=== PATIENT | female | born 1965 | race African-American/Black ===

== ENCOUNTER 2017-11-19 22:20 | Inpatient (IN) | payer OTHER ==
[~2017-11-19] VITALS: Ht 177.8 cm; Wt 73.0 kg
[~2017-11-19 22:20] MED LIST: IRON PO; PEPCID PO; PRI20 PO; [UNRECOGNIZED DRUG - OTHER] PO
[2017-11-20 00:26] LABS: CARBON DIOXIDE 23.9 mmol/L (21-32); CHLORIDE SERUM 109 mmol/L (98-107); GFR1 > 60 mL/min; GLUCOSE SERUM 85 mg/dL (74-106); POTASSIUM SERUM 3.8 mmol/L (3.5-5.1); SODIUM SERUM 142 mmol/L (136-145)
[2017-11-20 00:29] LABS: PLATELET COUNT 209 x10^3mcL (130-400)
[2017-11-20 00:30] LABS: ALBUMIN 3.4 g/dL (3.4-5.0); ALKALINE PHOSPHATASE 89 U/L (46-116); ALT/SGPT 37 U/L (14-59); AST/SGOT 31 U/L (15-37); BILIRUBIN TOTAL 0.2 mg/dL (0.20-1.00); LIPASE 145 IU/L (73-393); TOTAL PROTEIN, SERUM 7.1 g/dL (6.4-8.2)
[2017-11-20 00:35] LABS: AMYLASE 200 U/L (25-115)
[2017-11-20 00:44] LABS: RED CELL DISTRIBUTION WIDTH 17.3 % (11.5-14.5)
[2017-11-20 00:45] LABS: BAND NEUTROPHIL 5 % (0-10); MONOCYTE 3 % (0-7); SEGMENTED NEUTROPHILS 50 % (37-75)
[2017-11-20 00:46] LABS: PLATELET MORPHOLOGY PLATELETS NORMAL; rbc morphology (normal/abnorm) NORMAL (NORMAL)
[2017-11-20 01:38] LABS: AMPHETAMINE QUAL UR NONE DETECTED (NEG <=1000)
[2017-11-20 02:16] LABS: microscopic required? NO
[2017-11-20 02:28] LABS: UA SPECIFIC GRAVITY <=1.005 (1.005-1.035); urine erythrocyte NEGATIVE (NEGATIVE)
[2017-11-20 02:47] VITALS: BP 121/70
[2017-11-20 02:48] LABS: MAGNESIUM 2.1 mg/dL (1.8-2.4); PHOSPHOROUS 4.1 mg/dL (2.5-4.9)
[2017-11-20 02:52] LABS: FREE T4 0.72 ng/dL (0.76-1.46); FREE THYROXINE INDEX 1.8 ug/dL (1.4-4.5); T4(THYROXINE) 5.2 ug/dL (4.7-13.3)
[2017-11-20 02:53] LABS: T3 TOTAL 1.03 ng/mL
[2017-11-20 03:23] VITALS: BP 121/70
[2017-11-20 03:28] VITALS: Ht 177.8 cm; Wt 73.0 kg
[2017-11-20 03:52] LABS: CHOLESTEROL/HDL RATIO 1.5
[2017-11-20 04:03] LABS: TOTAL IRON BINDING CAPACITY 412 ug/dL (250-450)
[2017-11-20 04:12] LABS: IRON 24 ug/dL (50-170)
[2017-11-20 04:31] LABS: RED BLOOD CELLS 3.15 M/mm3 (4.10-5.10)
== END 2017-11-20 05:57 | disposition left against medical advice (07) | DRG 282 ==
LOC: ED 22:20 → DU 11-20 01:19
PROVIDERS: Emergency Medicine; Family Medicine
DX: K85.90 Acute pancreatitis without necrosis or infection, unspecified (principal); D64.9 Anemia, unspecified; Z53.21 Procedure and treatment not carried out due to patient leaving prior to being seen by health care provider; K86.1 Other chronic pancreatitis; Z90.49 Acquired absence of other specified parts of digestive tract; Z88.6 Allergy status to analgesic agent; Z98.84 Bariatric surgery status; Z79.899 Other long term (current) drug therapy
CPT/HCPCS: 83880; 84439; J1200; J2270; J2405; J7030; Q0092

== ENCOUNTER 2017-12-16 14:42 | Emergency (ER) | payer OTHER ==
[~2017-12-16] VITALS: Ht 177.8 cm; Wt 70.3 kg
[2017-12-16 14:46] VITALS: Ht 177.8 cm; Wt 70.3 kg
[2017-12-16 15:38] LABS: BASOPHIL % 0.2 % (0-2); PLATELET COUNT 215 x10^3mcL (130-400)
[2017-12-16 15:43] LABS: RED CELL DISTRIBUTION WIDTH 17.6 % (11.5-14.5)
[2017-12-16 15:55] LABS: microscopic required? NO
[2017-12-16 16:02] LABS: CALCIUM 8.5 mg/dL (8.5-10.1); CARBON DIOXIDE 27.6 mmol/L (21-32); CHLORIDE SERUM 107 mmol/L (98-107); GFR1 > 60 mL/min; GLUCOSE SERUM 81 mg/dL (74-106); POTASSIUM SERUM 4.9 mmol/L (3.5-5.1); SODIUM SERUM 139 mmol/L (136-145)
[2017-12-16 16:04] LABS: ALBUMIN 3.6 g/dL (3.4-5.0); ALKALINE PHOSPHATASE 83 U/L (46-116); ALT/SGPT 36 U/L (14-59); AMYLASE 188 U/L (25-115); AST/SGOT 41 U/L (15-37); BILIRUBIN TOTAL 0.2 mg/dL (0.20-1.00); LIPASE 180 IU/L (73-393); TOTAL PROTEIN, SERUM 7.5 g/dL (6.4-8.2)
[2017-12-16 16:26] LABS: UA SPECIFIC GRAVITY <=1.005 (1.005-1.035); urine erythrocyte NEGATIVE (NEGATIVE)
[2017-12-16 18:57] LABS: AMPHETAMINE QUAL UR NONE DETECTED (See below)
[2017-12-16 18:58] LABS: MAGNESIUM 2.2 mg/dL (1.8-2.4); PHOSPHOROUS 3.9 mg/dL (2.5-4.9)
[2017-12-16 19:00] VITALS: BP 127/64
[2017-12-16 19:06] LABS: FREE T4 0.69 ng/dL (0.76-1.46); FREE THYROXINE INDEX 1.6 ug/dL (1.4-4.5); T4(THYROXINE) 4.9 ug/dL (4.7-13.3)
[2017-12-16 19:30] LABS: CHOLESTEROL/HDL RATIO 1.7
[2017-12-16 19:45] LABS: T3 TOTAL 0.98 ng/mL
== END 2017-12-16 20:09 | disposition left against medical advice (07) ==
LOC: ED 14:42
PROVIDERS: Emergency Medicine; Family Medicine
DX: K59.00 Constipation, unspecified (principal); K56.7 Ileus, unspecified; R11.10 Vomiting, unspecified
CPT/HCPCS: 83880; 84439; J2060; J2270; J2765; J3010; J7030; Q0092

== ENCOUNTER 2018-01-26 15:50 | Emergency (ER) | payer OTHER ==
[~2018-01-26] VITALS: Ht 172.7 cm; Wt 71.2 kg
[2018-01-26 17:06] LABS: PLATELET COUNT 183 x10^3mcL (130-400)
[2018-01-26 17:16] LABS: RED CELL DISTRIBUTION WIDTH 17.7 % (11.5-14.5)
[2018-01-26 17:18] LABS: CARBON DIOXIDE 25.7 mmol/L (21-32); CHLORIDE SERUM 110 mmol/L (98-107); CREATININE SERUM 0.9 mg/dL (0.6-1.0); GFR1 > 60 mL/min; GLUCOSE SERUM 101 mg/dL (74-106); POTASSIUM SERUM 3.5 mmol/L (3.5-5.1); SODIUM SERUM 136 mmol/L (136-145)
[2018-01-26 17:22] LABS: ALBUMIN 3.1 g/dL (3.4-5.0); ALKALINE PHOSPHATASE 61 U/L (46-116); ALT/SGPT 24 U/L (14-59); AST/SGOT 28 U/L (15-37); LIPASE 116 IU/L (73-393); TOTAL PROTEIN, SERUM 6.5 g/dL (6.4-8.2)
[2018-01-26 17:40] VITALS: BP 114/76
== END 2018-01-26 18:34 | disposition home or self-care (01) ==
LOC: ED 15:50
PROVIDERS: Emergency Medicine
DX: G89.29 Other chronic pain (principal); R10.13 Epigastric pain; R10.32 Left lower quadrant pain; Z88.8 Allergy status to other drugs, medicaments and biological substances
CPT/HCPCS: C9113; J2270; J2765; J3010; J7030

== ENCOUNTER 2018-04-03 22:35 | Emergency (ER) | payer OTHER ==
[~2018-04-03] VITALS: Ht 177.8 cm; Wt 75.3 kg
[2018-04-03 22:40] VITALS: Ht 177.8 cm; Wt 75.3 kg
[2018-04-03 23:37] LABS: CALCIUM 8.1 mg/dL (8.5-10.1); CHLORIDE SERUM 106 mmol/L (98-107); CREATININE SERUM 0.9 mg/dL (0.6-1.0); GFR1 > 60 mL/min; GLUCOSE SERUM 120 mg/dL (74-106); POTASSIUM SERUM 4.1 mmol/L (3.5-5.1); SODIUM SERUM 138 mmol/L (136-145)
[2018-04-03 23:42] LABS: ALBUMIN 3.4 g/dL (3.4-5.0); ALKALINE PHOSPHATASE 60 U/L (46-116); ALT/SGPT 43 U/L (14-59); AST/SGOT 49 U/L (15-37); BILIRUBIN TOTAL 0.3 mg/dL (0.20-1.00); LIPASE 158 IU/L (73-393); TOTAL PROTEIN, SERUM 6.8 g/dL (6.4-8.2)
[2018-04-04 00:46] LABS: RED CELL DISTRIBUTION WIDTH 20.4 % (11.5-14.5)
[2018-04-04 01:15] LABS: ATYPICAL LYMPH 1 %; MONOCYTE 10 % (0-7); SEGMENTED NEUTROPHILS 42 % (37-75); rbc morphology (normal/abnorm) ABNORMAL (NORMAL)
[2018-04-04 01:16] LABS: PLATELET MORPHOLOGY PLT CLUMPS SEEN
[2018-04-04 01:17] LABS: PLATELET COUNT 122 x10^3mcL (130-400)
[2018-04-04 05:00] VITALS: BP 144/83
== END 2018-04-04 05:01 | disposition home or self-care (01) ==
LOC: ED 22:35
PROVIDERS: Emergency Medicine
DX: R10.33 Periumbilical pain (principal); Z88.6 Allergy status to analgesic agent; Z88.5 Allergy status to narcotic agent; Z88.8 Allergy status to other drugs, medicaments and biological substances; Z98.890 Other specified postprocedural states
CPT/HCPCS: J0500; J1170; J2405; J3010; J7030

== ENCOUNTER 2018-07-18 16:06 | Emergency (ER) | payer OTHER ==
[~2018-07-18] VITALS: Ht 177.8 cm; Wt 79.8 kg
[2018-07-18 16:11] VITALS: Ht 177.8 cm; Wt 79.8 kg
[2018-07-18 19:06] LABS: microscopic required? NO
[2018-07-18 19:35] LABS: CALCIUM 8.2 mg/dL (8.5-10.1); CARBON DIOXIDE 29.3 mmol/L (21-32); CREATININE SERUM 1.2 mg/dL (0.6-1.0); POTASSIUM SERUM 3.8 mmol/L (3.5-5.1)
[2018-07-18 19:39] LABS: ALBUMIN 3.6 g/dL (3.4-5.0); BILIRUBIN TOTAL 0.22 mg/dL (0.20-1.00); TOTAL PROTEIN, SERUM 7.5 g/dL (6.4-8.2)
[2018-07-18 19:39] LABS: urine erythrocyte NEGATIVE (NEGATIVE)
[2018-07-18 19:45] LABS: BASOPHIL % 0.6 % (0-2); PLATELET COUNT 182 x10^3mcL (130-400); RED CELL DISTRIBUTION WIDTH 14.3 % (11.5-14.5)
[2018-07-18 20:00] VITALS: BP 101/53
== END 2018-07-18 20:00 | disposition left against medical advice (07) ==
LOC: ED 16:06
PROVIDERS: Emergency Medicine
DX: R10.32 Left lower quadrant pain (principal); R11.2 Nausea with vomiting, unspecified; Z88.5 Allergy status to narcotic agent; Z88.8 Allergy status to other drugs, medicaments and biological substances; Z88.6 Allergy status to analgesic agent; Z98.84 Bariatric surgery status
CPT/HCPCS: 36415; J0500; J2405; J7030; Q9967